=== PATIENT | male | born 1990 | race Caucasian/White ===

== ENCOUNTER 2020-02-03 09:14 | Outpatient (CLI) | payer MEDICAID, SELFPAY ==
--- NOTE | 2020-02-03 11:00 | NEURO_ITS ---
Patient Number: [id number] Impression: # Complains of left hand numbness. # Left Carpal Tunnel Syndrome of moderate degree. # No ulnar neuropathy. # Normal needle/EMG exam. Nerve Conduction Studies Anti Sensory Summary Table Stim Site NR Peak (ms) P-T Amp (?V) Site1 Site2 Delta-P (ms) Dist (cm) Ronnie (m/s) Left Median Anti Sensory (2-3nd Digit) Wrist 3.4 56.5 Wrist 2-3nd Digit 3.4 14.0 41 Wrist 3.4 63.1 Wrist 2-3nd Digit 3.4 14.0 41 Left Radial Anti Sensory (Base 1st Digit) Wrist 2.0 20.5 Wrist Base 1st Digit 2.0 0.0 Left Ulnar Anti Sensory (5th Digit) Wrist 2.3 20.6 Wrist 5th Digit 2.3 14.0 61 Motor Summary Table Stim Site NR Onset (ms) O-P Amp (mV) Site1 Site2 Delta-0 (ms) Dist (cm) Ronnie (m/s) Left Median Motor (Abd Poll Brev) Wrist 4.8 4.0 Elbow Wrist 5.7 30.0 53 Elbow 10.5 2.9 Left Ulnar Motor (Abd Dig Minimi) Wrist 2.3 6.9 A Elbow Wrist 6.0 32.0 53 A Elbow 8.3 6.0 F Wave Studies NR F-Lat (ms) L-R F-Lat (ms) Left Median (Mrkrs) (Abd Poll Brev) 31.00 Left Ulnar (Mrkrs) (Abd Dig Min) 30.50 EMG Side Muscle Nerve Root Ins Act Fibs Amp Dur Recrt Comment Left 1stDorInt Ulnar C8-T1 Nml Nml Nml Nml Nml Left Ext Indicis Radial (Post Int) C7-8 Nml Nml Nml Nml Nml Left Ext Digitorum Radial (Post Int) C7-8 Nml Nml Nml Nml Nml Left BrachioRad Radial C5-6 Nml Nml Nml Nml Nml Left PronatorTeres Median C6-7 Nml Nml Nml Nml Nml Left Abd Poll Brev Median C8-T1 Nml Nml Nml Nml Nml MTDD
== END 2020-02-03 09:15 | disposition home or self-care (01) ==
DX: R20.0 Anesthesia of skin (principal); R20.2 Paresthesia of skin; G56.02 Carpal tunnel syndrome, left upper limb
CPT/HCPCS: 95886; 95909

== ENCOUNTER 2021-08-10 01:32 | Day surgery (SDC) | payer OTHER, SELFPAY ==
[2021-08-07 11:53] VITALS: BMI 42.5
--- NOTE | 2021-08-07 12:06 | PC.NURSE ---
Report to the Outpatient Waiting Room, entrance under the green pavilion located off [facility], at time __0800_ on date 08-10-21. OR Time: __1000__. - You and your visitor will be asked a series of questions to screen for COVID 19 for your protection. - A mask is required within the hospital. - Only one visitor is allowed at this time. Patient visitors will be guided where to wait when not with patient. Preoperative COVID Testing Requirements: No COVID Test needed if: (proof is required; if not received patient will have Rapid Test prior to entry) - Patient has received COVID Vaccine at least 14 days prior to procedure date or - Patient has positive COVID test result within last 90 days of surgery date. COVID Test needed if above criteria is not met If not COVID vaccinated a COVID test must be conducted within 72 hours of surgery and patient is asked to isolate self from time of testing until procedure. You will go to the [employer] [facility] for your COVID testing. The [employer] [facility] Testing site is located at the corner of [address] from [facility]. You will only be called if COVID results are positive and your surgeon may reschedule your elective surgery date. Patients may have clear liquids (water, carbonated beverages, clear teas, apple juice) until 3 hours prior to surgery with a maximum of 20 ounces. - No food from midnight until time of surgery - Infants may have breast milk until 4 hours before surgery, formula 6 hours prior to surgery. - Children will be allowed to drink immediately following surgery. If applicable, please bring a bottle or sippy cup to assist with drinking. Juice, water, soda, and popsicles are readily available. For infants on formula, please bring formula the day of surgery. Pacifiers are allowed. Take the following medications with a SIP of water the morning of surgery: Medications to discontinue per physician Date to take last dose Please no make-up, nail latvian, hairspray, perfume, deodorant, or body powder the day of surgery. No jewelry (including any body piercings) or valuables the day of surgery, leave them at home. Please take a shower or bath the night before, or the morning of, surgery with an antibacterial soap. Wear comfortable, loose fitting clothing. Children are encouraged to wear pajamas. - Jewelry must be removed prior to entering the operating room. Rings and piercings that are not removed may be cut off. - The hospital will not accept responsibility for valuables. - Please leave all valuables, including medications, at home the day of surgery. If you are going home after surgery, a licensed car driver must drive you home. - NO public transportation without another adult. - We recommend that an adult stay with you for 24 hours following discharge. - We also recommend that you do not drive, make important decision, drink alcoholic beverages, or take any drugs that were not prescribed by your health care provider for at least 24 hours after your discharge time. For Pediatric surgeries, we recommend two adults accompany the child home (only one inside the building at this time). Follow any additional instructions given to you from your surgeon. Telephone instructions given to __Patient__and asked if any additional questions and then verbalized understanding. Patient advised to call surgeon office or pre surgery nurse liaison [phone] if any additional questions.
--- NOTE | 2021-08-09 17:26 | PM.IMHP ---
H&P: HPI History of Present Illness Date/Time: 08/09/21 17:26 Chief Complaint: Right maxillary chronic sinusitis, facial pressure, nasal obstruction, nasal congestion, septal deviation, inferior turbinate hypertrophy Narrative: patient presents for planned surgical procedures. No change in symptoms no change medical history. Review of Systems Constitutional: Constitutional: Denies fatigue, Denies fever(s) and Denies lethargy Eyes: Eyes: Denies blurry vision and Denies change in vision ENT: Reports as per HPI Cardiovascular: Cardiovascular: Denies chest pain Respiratory: Respiratory: Denies cough Endocrine: Endocrine: Denies fatigue Hematologic/Lymphatic: Hematologic/Lymphatic: Denies easy bleeding, Denies easy bruising and Denies lymphadenopathy Allergic/Immunologic: Allergic/Immunologic: Denies seasonal rhinorrhea PMFSH Social History Social History Smoking status: Never smoker Second hand tobacco smoke exposure: No Alcohol intake: current Substance use: never Substance use type: marijuana Living arrangements: with family Spiritual care concerns: No Meds Home Medications and Allergies Home Medications Medication Instructions Recorded Confirmed Type fluticasone propionate 50 1 - 2 spray INTRANASAL DAILY #15.8 10/04/20 08/07/21 Rx mcg/actuation nasal ml spray,suspension mupirocin 2 % topical ointment 1 applic TOPICAL .qd #22 g 10/04/20 08/07/21 Rx famotidine 20 mg PO BID 08/07/21 08/07/21 History guanfacine 2 mg PO HS 08/07/21 08/07/21 History hydrochlorothiazide 12.5 mg PO QAM 08/07/21 08/07/21 History lisdexamfetamine [Vyvanse] 30 mg PO QAM 08/07/21 08/07/21 History omeprazole 40 mg PO BID 08/07/21 08/07/21 History sertraline 50 mg PO HS 08/07/21 08/07/21 History Allergies Allergy/AdvReac Type Severity Reaction Status Date / Time No Known Allergies Allergy Verified 08/07/21 11:48 Exam Const: General: cooperative, healthy appearing, comfortable, well developed and alert HENMT: Head: normal to inspection, normocephalic and atraumatic Ears: hearing grossly normal bilaterally, external ears normal, TM's normal bilaterally and EAC's normal General nose exam: Normal external nose present, Normal nares present, No nasal polyps present and Other nasal findings present ( Septal deviation inferior turbinate hypertrophy) Face and sinus: normal facial exam Mouth: Yes Normal oral and palatal mucosa present, Yes lip normal, Yes tongue normal, Yes oropharynx normal and Yes moist mucous membranes Teeth and gingiva: dentition normal and gingiva normal Throat: posterior oropharynx normal, tonsils normal and uvula midline Eyes: General: appearance normal, both eyes and all related structures Periorbital: periorbital findings normal Eyelids: eyelids normal Conjunctivae: conjunctivae normal Sclera: sclerae normal Neck: Neck: normal visual inspection, full ROM and no lymphadenopathy Thyroid: thyroid normal Lymphatic: no lymphadenopathy noted Resp: Effort & Inspection: normal respiratory effort and able to speak in complete sentences Cardio: Jugular venous distension: no JVD Neuro: Cranial nerves: Yes CN's II-XII intact bilaterally Assessment and Plan Assessment and plan (1) Hypertrophy of both inferior nasal turbinates: Code(s): J34.3 - Hypertrophy of nasal turbinates Status: Acute Assessment and Plan: plan is for the OR endoscopic assisted septoplasty right maxillary antrostomy inferior turbinate submucosal resection with outfracture total operative time 1:00 hour. Risks were discussed including bleeding infection damage to surrounding structures need for further procedures septal perforation postoperative bleeding postoperative pain CSF leak brain damage blindness change in vision. Need for postoperative antibiotics patient voiced understanding of all these risks and agreed. (2) Nasal septal deviation:
[2021-08-10] VITALS (14 sets, daily range): BP systolic 109–144; BP diastolic 66–98; PULSE 73–108; RESP 12–20; TEMP 35.9–36.4; O2SAT 89–99
--- NOTE | 2021-08-10 07:13 | WPDHPUPDATE1 ---
History and Physical Update Update Date/Time: 08/10/21 07:13 History and Physical has been reviewed, including an updated exam of the patient. There are NO changes in the patient's condition. Risks, benefits, and alternatives have been discussed and questions answered. Patient agrees to proceed with procedure.
[2021-08-10] MEDS: LACTATED RINGERS 1,000 ML 30 ML IV CONT ×2 (08:05→11:25)
--- NOTE | 2021-08-10 08:11 | P.PNAN_ITS ---
Anes - Initial Pre Proc Eval Procedure: Operation Date: 08/10/21 09:00 Proposed Procedures p Endoscopic Septoplasty - Javad Piedra MD s Bilateral Inferior Turbinectomy - Javad Piedra MD Date/Time: 08/10/21 08:11 Surgeon: Javad Piedra MD Pre Op Diagnosis: septal deviation, turbinate hypertrophy Patient Data Age: 31 Gender: M Height: 1.78 m Weight: 134.5 kg Allergies Allergy/AdvReac Type Severity Reaction Status Date / Time No Known Allergies Allergy Verified 08/07/21 11:48 Home Medications Medication Instructions Recorded Confirmed Type fluticasone propionate 50 1 - 2 spray INTRANASAL DAILY #15.8 10/04/20 08/07/21 Rx mcg/actuation nasal ml spray,suspension mupirocin 2 % topical ointment 1 applic TOPICAL .qd #22 g 10/04/20 08/07/21 Rx famotidine 20 mg PO BID 08/07/21 08/07/21 History guanfacine 2 mg PO HS 08/07/21 08/07/21 History hydrochlorothiazide 12.5 mg PO QAM 08/07/21 08/07/21 History lisdexamfetamine [Vyvanse] 30 mg PO QAM 08/07/21 08/07/21 History omeprazole 40 mg PO BID 08/07/21 08/07/21 History sertraline 50 mg PO HS 08/07/21 08/07/21 History Laboratory Tests 08/10/21 08:03 Sodium Pending Potassium Pending Chloride Pending Carbon Dioxide Pending Anion Gap Pending BUN Pending Creatinine Pending Estim Creat Clear Calc Pending Estimated GFR Pending Glucose Pending Calcium Pending Patient hx anesthesia problems: none Family hx anesthesia problems: none Results Review: All pre-operative results and documents have been reviewed as part of the pre-operative evaluation. [facility] Past Medical History Medical History (Updated 08/10/21 @ 08:12 by Petey Dickens MD) Anxiety Morbid obesity Snoring Surgical History Surgical History (Updated 08/10/21 @ 08:12 by Petey Dickens MD) History of carpal tunnel surgery Social History Social History Smoking status: Never smoker Second hand tobacco smoke exposure: No Alcohol intake: current Substance use: never Substance use type: marijuana Living arrangements: with family Spiritual care concerns: No Anes - Eval Final PreProcedure Day of Procedure 08/10/21 08:11 Patient weight: obese Heart: regular rate and rhythm Lungs: clear to auscultation Airway: Mallampati scale class II Neurological: alert and oriented Last oral intake: >/= 8 hours Emergent: no Anesthetic plan: proceed Anesthesia type and monitoring: general GIVS and standard monitoring Results Review: All pre-operative results and documents have been reviewed as part of the pre-operative evaluation. Informed Consent: The patient's anesthetic plan and its attendant risks and benefits were discussed with the patient/family/POA. Questions were solicited and answers provided to the satisfaction of the patient/family/POA.
[2021-08-10 08:24] LABS: Anion Gap 6 mmol/L (8-16); Blood Urea Nitrogen 16 mg/dL (9-20); Calcium 8.9 mg/dL (8.4-10.2); Carbon Dioxide 31 mmol/L (22-30); Chloride 98 mmol/L (98-107); Estimated CRCL calculation 159 ml/min; Estimated Glomerular Filt Rate > 60; Glucose 132 mg/dL (65-110); Potassium 3.8 mmol/L (3.4-5.0); Sodium 135 mmol/L (137-145)
[2021-08-10] MEDS: ACETAMINOPHEN 500 MG TABLET 1000 MG PO (08:31)
[2021-08-10] MEDS: ceFAZolin 3 GM/D5W 100 ML 100 ML IVPB (09:40)
[2021-08-10] MEDS: LIDO 1%/EPINEPHRINE/PF 1:200,000 30 ML VIAL XX (09:56)
--- NOTE | 2021-08-10 11:37 | W.PM.PROC2 ---
Procedure Note - Detailed Date of Procedure 08/10/21 Pre-op Diagnosis septal deviation, turbinate hypertrophy, right maxillary sinusitis, facial pressure, facial pain, nasal obstruction, nasal congestion Post-op Diagnosis same Procedure Performed 1. Endoscopic right-sided maxillary antrostomy, 2. Endoscopic assisted septoplasty, 3. Endoscopic turbinate reduction with outfracture, 4. Right middle turbinectomy endoscopic Surgeon Javad Piedra MD Correspondence Specialist None Anesthesia general Indications See above Findings Hypertrophy turbinates well reduced significant mulberry tips needing to be cauterized and debrided deviated septum to the left straight and following procedure no concomitant perforations right middle turbinate completely scarred to lateral nasal wall obstructing maxillary sinus necessitating right middle turbinectomy Description of Procedure Patient correctly identified consent verified patient marked patient brought to operating room. Time-out performed. Anesthesia induced endotracheal tube secured. Patient prepped and draped. Second time-out performed. Afrin-soaked pledgets placed for 5 minutes then removed. 0 degree endoscope used. 10 cc of local 1% with 1 100,000 parts epinephrine injected into the nasal septum and anterior portions of the inferior turbinates right middle turbinate. Gonzalo incision utilized with 15 blade left-sided mucoperichondrial flap elevated with 7 Romanian suction septum crossed over with osteotome right-sided mucoperichondrial flap elevated no perforations. Deviated septum removed with combination of D blade osteotome Kimber and Marc Sykes forceps. Middle turbinates debrided bilaterally in the submucosal plane and outfractured microdebrider with 2 mm head. Significant mulberry tips required debridement with 4 mm microdebrider and cautery with suction Bovie electrocautery at a setting of 12. Right middle turbinate resected using [place] straight through cuts stump cauterized using suction Bovie electrocautery hemostasis excellent maxillary antrostomy created on the right using double ball tip probe backbiter straight through cut microdebrider. Hemostasis was excellent. Gonzalo incision closed with 5 interrupted 5 0 fast gut sutures. Iverson splints placed. Three 0 interrupted suture a 3-0 mattressed nylon suture placed. This marked the procedure. Total blood loss 25 cc. I performed all dictated portions. Care the patient turned over to Anesthesiology. Estimated Blood Loss -25.0 Drains No Packing No Pathology none sent Complications No immediate complications Condition stable Disposition PACU
[2021-08-10] MEDS: fentaNYL CITRATE INJ (*CRX) 100 MCG/2 ML VIAL 25 MCG IV PUSH ×3 (11:51→12:08)
== END 2021-08-10 14:57 | disposition home or self-care (01) ==
PROVIDERS: Anesthesiology; PCP Family Medicine; Visit Provider Otolaryngology
PROC: (CPT 30520; principal; 2021-08-10 09:00)
PROC: (CPT 30520; 2021-08-10 09:00)
DX: J34.2 Deviated nasal septum (principal); J34.3 Hypertrophy of nasal turbinates; J34.89 Other specified disorders of nose and nasal sinuses; R44.8 Other symptoms and signs involving general sensations and perceptions; J32.0 Chronic maxillary sinusitis; R51.9 Headache, unspecified; F12.90 Cannabis use, unspecified, uncomplicated; F41.9 Anxiety disorder, unspecified; R06.83 Snoring; E66.01 Morbid (severe) obesity due to excess calories; Z68.41 Body mass index [BMI] 40.0-44.9, adult
CPT/HCPCS: 30520; 31256; 30140; 30999; 36415; 80048; A9270; J0330; J0690; J1100; J1170; J2250; J2405; J2704; J3010; J7120